=== PATIENT | male | born 1960 | race Caucasian/White ===

== ENCOUNTER 2020-06-21 11:49 | Emergency (ER) | payer OTHER, SELFPAY ==
[~2020-06-21] VITALS: Ht 165.1 cm; Wt 73.0 kg
[2020-06-21] MEDS ORDERED: ALBUTEROL 6.7GM HFA INHALER ORI ONE (12:15)
[2020-06-21] MEDS ORDERED: KETOROLAC 15MG/ML VIAL IM ONE (13:30)
[2020-06-21 13:36] VITALS: BP 97/66
[2020-06-21 14:07] LABS: HEMATOCRIT. 42.4 % (42.0-52.0); HEMOGLOBIN. 14.4 g/dL (14.0-18.0); MEAN CORPUSCULAR HEMOGLOBIN 31.4 pg (28.0-32.0); MEAN CORPUSCULAR VOLUME 92.2 fL (80.0-94.0); MEAN PLATELET VOLUME 9.3 fl (7.4-10.4); PLATELET 340 x1000/uL (130-400); RED BLOOD CELL COUNT 4.59 mill/uL (4.7-6.1); RED CELL DISTRIBUTION WIDTH 14.5 % (11.6-14.6)
[2020-06-21 14:13] LABS: CHLORIDE 99 mEq/L (98-107)
[2020-06-21 14:27] LABS: PLATELET ESTIMATE NORMAL
== END 2020-06-21 15:24 | disposition home or self-care (01) ==
LOC: ER 12:10
DX: R06.00 Dyspnea, unspecified (principal); R53.83 Other fatigue; Z20.828 Contact with and (suspected) exposure to other viral communicable diseases
CPT/HCPCS: 36415; 71045; 80053; 83880; 84484; 85025; 87635; 93005; 99285; Z7610

== ENCOUNTER 2020-09-22 22:37 | Emergency (ER) | payer OTHER ==
[~2020-09-22] VITALS: Ht 170.2 cm; Wt 97.0 kg
[2020-09-23] MEDS ORDERED: SODIUM CHLORIDE 0.9% 1,000 ML IV ONE ×2 (00:30→02:15)
[2020-09-23 00:39] LABS: BASOPHILS % 0.7 % (0.0-2.0); EOSINOPHILS % 5.8 % (0.0-5.0); HEMATOCRIT. 47.2 % (42.0-52.0); LYMPHOCYTES % 37.9 % (20.0-50.0); MEAN CORPUSCULAR HEMOGLOBIN 33.4 pg (28.0-32.0); MEAN CORPUSCULAR VOLUME 98.6 fL (80.0-94.0); MEAN PLATELET VOLUME 10.3 fl (7.4-10.4); MONOCYTES % 3.1 % (2.0-8.0); NEUTROPHILS % 52.5 % (40.0-76.0); PLATELET 195 x1000/uL (130-400); RED BLOOD CELL COUNT 4.79 mill/uL (4.7-6.1); RED CELL DISTRIBUTION WIDTH 14.8 % (11.6-14.6)
[2020-09-23 00:42] LABS: CHLORIDE 109 mEq/L (98-107)
[2020-09-23 00:51] LABS: *BENZODIAZEPINES SCREEN URINE NEGATIVE (NEGATIVE); *COCAINE SCREEN URINE NEGATIVE (NEGATIVE); CANNABINOID URINE SCREEN NEGATIVE (NEGATIVE); METHADONE URINE SCREEN NEGATIVE (NEGATIVE); OPIATES URINE SCREEN NEGATIVE (NEGATIVE)
[2020-09-23 00:52] LABS: *AMPHETAMINES SCREEN URINE NEGATIVE (NEGATIVE); *BARBITURATES SCREEN URINE NEGATIVE (NEGATIVE); PHENCYCLIDINE URINE SCREEN NEGATIVE (NEGATIVE)
[2020-09-23 01:13] LABS: ETHANOL BLOOD 354 mg/dL
[2020-09-23 05:44] VITALS: BP 115/68
== END 2020-09-23 06:14 | disposition home or self-care (01) ==
LOC: ER 22:37
DX: F10.229 Alcohol dependence with intoxication, unspecified (principal); Y90.8 Blood alcohol level of 240 mg/100 ml or more
CPT/HCPCS: 36415; 80048; 80305; 80320; 82962; 85025; 93005; 96360; 96361; 99285; J7030; G0480